=== PATIENT | female | born 1940 | race Caucasian/White ===

== ENCOUNTER 2018-04-27 11:42 | Outpatient (CLI) | payer MEDICARE ==
--- NOTE | 2018-04-27 13:39 | RAD ---
LEFT FOOT TWO VIEWS: HISTORY: Evaluate for second metatarsal fracture. The patient is having pain. COMPARISON: None. FINDINGS: Lisfranc alignment is maintained. Joint spaces are preserved. There is no evidence of a second meta tarsal fracture. IMPRESSION: No radiographic evidence of a second metatarsal fracture. POS: [facility]
== END 2018-04-27 11:43 | disposition home or self-care (01) ==
LOC: RAD 11:42
PROVIDERS: ATTEND Specialist
DX: M79.672 Pain in left foot (principal)

== ENCOUNTER 2018-10-20 12:10 | Outpatient (CLI) | payer MEDICARE, BC ==
--- NOTE | 2018-10-20 14:16 | MRI ---
MRI RIGHT SHOULDER WITHOUT CONTRAST: HISTORY: Longstanding shoulder pain. COMPARISON: None. FINDINGS: BICEPS TENDON: There is extraarticular longitudinal split tear biceps tendon. There is perching upon the lesser tub erosity through a tear of the superior glenohumeral ligament as well as undersurface tearing of the s ubscapularis. There is a high-grade tendinosis of the intraarticular tendon. ROTATOR CUFF: Full-thickness, full-width supraspinatus tendon tear retracted to the mid humeral head. Mild undersu rface partial tearing of the infraspinatus tendon. There is undersurface delamination of the subscap ularis. LABRUM: There is degenerative-type tearing of the superior labrum. BONES: There is a type I acromion. 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 Normal gl enoid version. MUSCLES: There is approximately 50-60% atrophy of the subscapularis. 10-15% atrophy of the infraspinatus. IMPRESSION: 1. Full-thickness, full-width supraspinatus tendon tear from the footprint retracted to the mid jessica ral head with approximately 50-60% atrophy. 2. Longitudinal split tear extraarticular biceps tendon with perching upon the lesser tuberosity thr ough a tear of the superior glenohumeral ligament portion of the biceps rancho as well as undersurfac e deep fiber partial tearing of the subscapularis. 3. Degenerative facet tearing of the superior labrum. POS: [facility]
== END 2018-10-20 12:11 | disposition home or self-care (01) ==
LOC: BICMRI 12:10
PROVIDERS: ATTEND Specialist
DX: M12.811 Other specific arthropathies, not elsewhere classified, right shoulder (principal); M75.121 Complete rotator cuff tear or rupture of right shoulder, not specified as traumatic; S43.491A Other sprain of right shoulder joint, initial encounter

== ENCOUNTER 2020-04-06 14:25 | Outpatient (CLI) | payer MEDICARE, OTHER ==
--- NOTE | 2020-04-06 16:04 | MRI ---
MRI lumbar spine noncontrast: HISTORY: Lumbar radicular pain. Low back pain radiating down both legs. COMPARISON: None. FINDINGS: Appropriate T1 marrow signal intensity of the lumbar vertebra. Lumbar spine vertebral body height is maintained. No fracture. No significant STIR hyperintensity to suggest vertebral body edema or ligamentous injury. Appropriate signal intensity of the visualized paraspinal muscles and solid organs. Conus medullaris terminates at the inferior aspect of L1. T12-L1:Disc desiccation without significant loss of disc space height. No posterior disc abnormality. No significant central canal stenosis or significant neural foraminal narrowing. L1-L2:Disc desiccation with mild loss of disc space height. Broad-based disc bulge, ligamentum flavum thickening and facet hypertrophy result in mild central canal stenosis. Mild bilateral neural foraminal narrowing. L2-L3:Disc desiccation with mild loss of disc space height. Broad-based disc bulge, ligamentum flavum thickening and facet hypertrophy result in mild central canal stenosis. Right neural foramen is patent. Mild left neural foraminal narrowing. L3-L4:Disc desiccation with mild loss of disc space height. Broad-based disc bulge, ligamentum flavum thickening and facet hypertrophy result in mild to moderate central canal stenosis. Mild to moderate bilateral neural foraminal narrowing. L4-L5:Disc desiccation with mild loss of disc space height. Broad-based disc bulge, ligamentum flavum thickening and facet hypertrophy do not cause any significant central canal stenosis. Right neural foramen is moderately narrowed. There is mild left foraminal narrowing. There is an annular fissure i n the foraminal component of the disc. Fissure is adjacent to the foraminal left L4 nerve root. L5-S1:Disc desiccation without significant loss of disc space height. There is a left hemilaminotomy defect. No significant central canal stenosis. Mild to moderate bilateral neural foraminal narrowing. IMPRESSION: Degenerative changes of the lumbar spine as detailed above. Transcribed Date/Time: 04/06/2020 4:25 PM
== END 2020-04-06 14:26 | disposition home or self-care (01) ==
LOC: BICMRI 14:25
PROVIDERS: ATTEND Nurse Practitioner Family
DX: M47.26 Other spondylosis with radiculopathy, lumbar region (principal)
CPT/HCPCS: 72148